=== PATIENT | male | born 1965 | race Caucasian/White ===

== ENCOUNTER 2019-06-19 20:05 | Inpatient (IN) | payer OTHER, MEDICAID ==
[~2019-06-19] VITALS: Ht 172.7 cm; Wt 80.1 kg
[2019-06-19 20:15] VITALS: BP_SYST 147
[2019-06-19] MEDS ORDERED: FAMOTIDINE PF 20 MG/2 ML VIAL IVP ONE (20:30)
[2019-06-19] MEDS ORDERED: MORPHINE 2 MG/ML INJ. SYRINGE IVP ONE (20:30)
[2019-06-19] MEDS ORDERED: ONDANSETRON HCL 4 MG/2 ML VIAL IVP ONE (20:30)
[2019-06-19 21:02] LABS: BASOPHILS # (AUTO) 0.1 K/uL (0.0-0.2); BASOPHILS % (AUTO) 0.7 % (0.0-2.0); EOSINOPHILS # (AUTO) 0.1 K/uL (0.0-0.4); EOSINOPHILS % (AUTO) 0.6 % (0.0-4.0); HEMATOCRIT 44.5 % (36-54); HEMOGLOBIN 13.8 g/dL (14.0-18.0); LYMPHOCYTES # (AUTO) 1.2 K/uL (1.0-5.5); LYMPHOCYTES % (AUTO) 10.3 % (20.5-51.5); MEAN CORPUSCULAR HEMOGLOBIN 27 pg (27-31); MEAN CORPUSCULAR HGB CONC 31 % (32-36); MEAN CORPUSCULAR VOLUME 87 fL (79.0-98.0); MONOCYTES # (AUTO) 1.7 K/uL (0.0-1.0); MONOCYTES % (AUTO) 14.9 % (1.7-9.3); NEUTROPHILS # (AUTO) 8.6 K/uL (1.8-7.7); NEUTROPHILS % (AUTO) 73.5 % (40.0-70.0); PLATELET COUNT (AUTO) 150 K/uL (130-430); RED BLOOD CELL COUNT(AUTO) 5.14 MIL/uL (4.2-6.2); RED CELL DISTRIBUTION WIDTH 22.6 % (9.0-15.0); WHITE BLOOD COUNT (AUTO) 11.8 K/uL (4.8-10.8)
[2019-06-19 21:13] LABS: CALCIUM 8.2 mg/dL (8.4-11.0)
[2019-06-19 21:18] LABS: ALBUMIN 2.5 g/dL (3.4-4.8); INR 1.4 (0.80-1.20); PROTHROMBIN TIME 13.7 SECS (9.5-12.5); TOTAL BILIRUBIN 0.7 mg/dL (0.0-1.0)
[2019-06-19 21:35] LABS: POTASSIUM 7.1 mmol/L (3.5-5.1)
[2019-06-19 21:43] LABS: CREATININE 11.73 mg/dL (0.55-1.30)
[2019-06-19] MEDS ORDERED: CALCIUM GLUCONATE 1 GM/10 ML VIAL IVP ONE (21:45)
[2019-06-19] MEDS ORDERED: INSULIN REGULAR, HUMAN 100 UNITS/ML, 10 ML VIAL IVP ONE (21:45)
[2019-06-19] MEDS ORDERED: DEXTROSE 50% JECT 50 ML DISP.SYRIN IVP ONE (21:45)
[2019-06-19] MEDS ORDERED: DILTIAZEM HCL 25 MG/5 ML VIAL IVP ONE (21:45)
[2019-06-19] MEDS ORDERED: SODIUM BICARBONATE 8.4% JECT 50 MEQ/50 ML SYRINGE IVP ONE (21:45)
[2019-06-19] MEDS ORDERED: SODIUM POLYSTYRENE SULFONATE 15 GM/60 ML UDBTL PO ONE (21:45)
[2019-06-19] MEDS ORDERED: NS 200 ML IV ONE (23:45)
[2019-06-20] VITALS (23 sets, daily range): BP systolic 112–168
[2019-06-20] MEDS ORDERED: ASPIRIN 81 MG TAB.CHEW PO ONE (00:15)
[2019-06-20] MEDS ORDERED: ACETAMINOPHEN 325 MG TABLET PO PRN (01:15)
[2019-06-20] MEDS ORDERED: DEXTROSE 50% JECT 50 ML DISP.SYRIN IVP PRN (01:15)
[2019-06-20] MEDS ORDERED: GLUCOSE 15 GM GEL (in 37.5 GM TUBE) PO PRN (01:15)
[2019-06-20] MEDS ORDERED: hydrALAZINE HCL 20 MG/ML VIAL IVP PRN (01:15)
[2019-06-20] MEDS ORDERED: D5W 1,000 ML IV PRN (01:15)
[2019-06-20] MEDS ORDERED: CAT.1 PO (01:20)
[2019-06-20] MEDS ORDERED: HYDR-3698 PO (01:21)
[2019-06-20] MEDS ORDERED: FURO-149 PO (01:22)
[2019-06-20] MEDS ORDERED: SODIUM BICARBONATE 8.4% VIAL 50 MEQ/50 ML VIAL INJ ONE (01:30)
[2019-06-20] MEDS ORDERED: NITROGLYCERIN 0.4 MG TAB.SUBL SL PRN (02:00)
[2019-06-20] MEDS ORDERED: SODIUM BICARBONATE 8.4% VIAL 50 MEQ/50 ML VIAL INJ SCH (02:00)
[2019-06-20] MEDS ORDERED: METOPROLOL TARTRATE 25 MG TABLET PO SCH ×3 (02:15→09:00)
[2019-06-20] MEDS ORDERED: METOPROLOL TARTRATE 50 MG TABLET PO SCH (02:30)
[2019-06-20] MEDS ORDERED: SODIUM BICARBONATE 8.4% JECT 50 MEQ/50 ML SYRINGE ONE (02:36)
[2019-06-20 05:51] LABS: BASOPHILS # (AUTO) 0.1 K/uL (0.0-0.2); BASOPHILS % (AUTO) 0.9 % (0.0-2.0); EOSINOPHILS # (AUTO) 0.1 K/uL (0.0-0.4); EOSINOPHILS % (AUTO) 0.9 % (0.0-4.0); HEMATOCRIT 42.9 % (36-54); HEMOGLOBIN 13.5 g/dL (14.0-18.0); LYMPHOCYTES # (AUTO) 0.7 K/uL (1.0-5.5); MEAN CORPUSCULAR HEMOGLOBIN 27 pg (27-31); MEAN CORPUSCULAR HGB CONC 32 % (32-36); MEAN CORPUSCULAR VOLUME 85 fL (79.0-98.0); MONOCYTES # (AUTO) 1.5 K/uL (0.0-1.0); MONOCYTES % (AUTO) 13.7 % (1.7-9.3); NEUTROPHILS # (AUTO) 8.3 K/uL (1.8-7.7); NEUTROPHILS % (AUTO) 77.5 % (40.0-70.0); PLATELET COUNT (AUTO) 136 K/uL (130-430); RED BLOOD CELL COUNT(AUTO) 5.06 MIL/uL (4.2-6.2); RED CELL DISTRIBUTION WIDTH 22.3 % (9.0-15.0); WHITE BLOOD COUNT (AUTO) 10.7 K/uL (4.8-10.8)
[2019-06-20 06:03] LABS: CALCIUM 7.8 mg/dL (8.4-11.0); POTASSIUM 4.1 mmol/L (3.5-5.1)
[2019-06-20 06:11] LABS: ALBUMIN 2.3 g/dL (3.4-4.8)
[2019-06-20 06:14] LABS: CREATININE 8.07 mg/dL (0.55-1.30)
[2019-06-20] MEDS: INSULIN REGULAR, HUMAN 100 UNITS/ML, 10 ML VIAL (humuLIN R) SUBCUT PRN ×3 (06:23→20:08)
[2019-06-20] MEDS: ASPIRIN 81 MG TAB.CHEW PO SCH (09:51)
[2019-06-20] MEDS: FUROSEMIDE 20 MG TABLET PO SCH ×2 (09:51→20:01)
[2019-06-20] MEDS: MORPHINE 2 MG/ML INJ. SYRINGE IVP PRN ×2 (10:59→21:54)
[2019-06-20] MEDS ORDERED: CARVEDILOL 25 MG TABLET (COREG) PO ONE (11:30)
[2019-06-20] MEDS: CARVEDILOL 25 MG TABLET (COREG) PO SCH (20:02)
[2019-06-20] MEDS: hydrALAZINE HCL 25 MG TABLET PO SCH (20:02)
[2019-06-21] VITALS (18 sets, daily range): BP systolic 96–147
[2019-06-21 05:31] LABS: BASOPHILS # (AUTO) 0.1 K/uL (0.0-0.2); BASOPHILS % (AUTO) 0.7 % (0.0-2.0); EOSINOPHILS # (AUTO) 0.2 K/uL (0.0-0.4); HEMATOCRIT 38.5 % (36-54); HEMOGLOBIN 12.1 g/dL (14.0-18.0); LYMPHOCYTES # (AUTO) 0.8 K/uL (1.0-5.5); LYMPHOCYTES % (AUTO) 9.7 % (20.5-51.5); MEAN CORPUSCULAR HEMOGLOBIN 27 pg (27-31); MEAN CORPUSCULAR HGB CONC 32 % (32-36); MEAN CORPUSCULAR VOLUME 84 fL (79.0-98.0); MONOCYTES # (AUTO) 1.1 K/uL (0.0-1.0); MONOCYTES % (AUTO) 13.7 % (1.7-9.3); NEUTROPHILS # (AUTO) 5.9 K/uL (1.8-7.7); NEUTROPHILS % (AUTO) 73.9 % (40.0-70.0); PLATELET COUNT (AUTO) 114 K/uL (130-430); RED BLOOD CELL COUNT(AUTO) 4.57 MIL/uL (4.2-6.2); RED CELL DISTRIBUTION WIDTH 21.9 % (9.0-15.0)
[2019-06-21 06:14] LABS: CALCIUM 7.2 mg/dL (8.4-11.0); POTASSIUM 5.4 mmol/L (3.5-5.1)
[2019-06-21 06:15] LABS: CREATININE 9.64 mg/dL (0.55-1.30); TOTAL BILIRUBIN 0.6 mg/dL (0.0-1.0)
[2019-06-21 06:16] LABS: ALBUMIN 1.9 g/dL (3.4-4.8); THYROID STIMULATING HORMONE 8.56 uIu/mL (0.36-3.74)
[2019-06-21] MEDS: INSULIN REGULAR, HUMAN 100 UNITS/ML, 10 ML VIAL (humuLIN R) SUBCUT PRN ×3 (06:26→17:53)
[2019-06-21] MEDS: MORPHINE 2 MG/ML INJ. SYRINGE IVP PRN ×2 (06:26→14:10)
[2019-06-21] MEDS ORDERED: HEPARIN SODIUM,PORCINE 5000 UNITS/ML VIAL IV ONE (08:45)
[2019-06-21] MEDS: hydrALAZINE HCL 25 MG TABLET PO SCH ×2 (09:00→20:05)
[2019-06-21] MEDS: ASPIRIN 81 MG TAB.CHEW PO SCH ×2 (09:00)
[2019-06-21] MEDS ORDERED: HEPARIN SODIUM,PORCINE 5000 UNITS/ML VIAL MC ONE (09:00)
[2019-06-21] MEDS: CARVEDILOL 25 MG TABLET (COREG) PO SCH ×3 (09:00→20:05)
[2019-06-21] MEDS: FUROSEMIDE 20 MG TABLET PO SCH ×3 (10:45→20:06)
[2019-06-21] MEDS: MUPIROCIN 2% TOPICAL OINTMENT 22 GM TP SCH (20:17)
[2019-06-22] VITALS: BP_SYST 126
[2019-06-22] MEDS: MORPHINE 2 MG/ML INJ. SYRINGE IVP PRN ×6 (00:35→23:38)
[2019-06-22] MEDS: INSULIN REGULAR, HUMAN 100 UNITS/ML, 10 ML VIAL (humuLIN R) SUBCUT PRN ×4 (06:15→20:13)
[2019-06-22 08:00] VITALS: BP_SYST 126
[2019-06-22] MEDS: ASPIRIN 81 MG TAB.CHEW PO SCH (08:51)
[2019-06-22] MEDS: FUROSEMIDE 20 MG TABLET PO SCH ×2 (08:51→20:09)
[2019-06-22] MEDS: MUPIROCIN 2% TOPICAL OINTMENT 22 GM TP SCH ×2 (10:42→20:08)
[2019-06-22] MEDS: CARVEDILOL 25 MG TABLET (COREG) PO SCH ×2 (10:43→20:10)
[2019-06-22] MEDS: hydrALAZINE HCL 25 MG TABLET PO SCH ×2 (10:44→20:10)
[2019-06-22 11:21] LABS: CALCIUM 7.2 mg/dL (8.4-11.0); POTASSIUM 5.6 mmol/L (3.5-5.1)
[2019-06-22 11:26] LABS: ALBUMIN 1.9 g/dL (3.4-4.8); TOTAL BILIRUBIN 0.6 mg/dL (0.0-1.0)
[2019-06-22 11:31] LABS: CREATININE 8.01 mg/dL (0.55-1.30)
[2019-06-22 12:00] VITALS: BP_SYST 116
[2019-06-22 16:00] VITALS: BP_SYST 116
[2019-06-22 20:00] VITALS: BP_SYST 125
[2019-06-23] MEDS: MORPHINE 2 MG/ML INJ. SYRINGE IVP PRN ×2 (03:37→13:56)
[2019-06-23 04:00] VITALS: BP_SYST 119
[2019-06-23 04:02] VITALS: BP_SYST 106
[2019-06-23] MEDS: INSULIN REGULAR, HUMAN 100 UNITS/ML, 10 ML VIAL (humuLIN R) SUBCUT PRN ×2 (06:03→13:08)
[2019-06-23] MEDS: hydrALAZINE HCL 25 MG TABLET PO SCH (13:17)
[2019-06-23] MEDS: ASPIRIN 81 MG TAB.CHEW PO SCH (13:17)
[2019-06-23] MEDS: CARVEDILOL 25 MG TABLET (COREG) PO SCH (13:18)
[2019-06-23] MEDS: FUROSEMIDE 20 MG TABLET PO SCH (13:19)
[2019-06-23] MEDS ORDERED: CARV25TA55 PO (13:54)
[2019-06-23] MEDS ORDERED: HYDR-4038 PO (13:54)
[2019-06-23 15:55] VITALS: BP_SYST 133
== END 2019-06-23 17:25 | disposition home or self-care (01) | DRG 682 ==
LOC: SED 20:05 → SIC 06-20 01:15 → STU 06-21 17:13
PROVIDERS: ADMIT Family Medicine; ATTEND Family Medicine
PROC: 5A1D70Z Performance of Urinary Filtration, Intermittent, Less than 6 Hours Per Day (ICD-10-PCS; principal; 2019-06-20)
PROC: 5A1D70Z Performance of Urinary Filtration, Intermittent, Less than 6 Hours Per Day (ICD-10-PCS; 2019-06-21)
PROC: 5A1D70Z Performance of Urinary Filtration, Intermittent, Less than 6 Hours Per Day (ICD-10-PCS; 2019-06-23)
DX: N17.9 Acute kidney failure, unspecified (principal); I50.23 Acute on chronic systolic (congestive) heart failure; I13.2 Hypertensive heart and chronic kidney disease with heart failure and with stage 5 chronic kidney disease, or end stage renal disease; E87.1 Hypo-osmolality and hyponatremia; E87.2 Acidosis; I42.9 Cardiomyopathy, unspecified; N18.6 End stage renal disease; B19.20 Unspecified viral hepatitis C without hepatic coma; D64.9 Anemia, unspecified; E11.22 Type 2 diabetes mellitus with diabetic chronic kidney disease; E87.5 Hyperkalemia; F15.10 Other stimulant abuse, uncomplicated; F17.210 Nicotine dependence, cigarettes, uncomplicated; E11.51 Type 2 diabetes mellitus with diabetic peripheral angiopathy without gangrene; E11.65 Type 2 diabetes mellitus with hyperglycemia; E11.42 Type 2 diabetes mellitus with diabetic polyneuropathy; I48.0 Paroxysmal atrial fibrillation; J44.9 Chronic obstructive pulmonary disease, unspecified; K70.31 Alcoholic cirrhosis of liver with ascites; Z79.4 Long term (current) use of insulin; Z99.2 Dependence on renal dialysis; Z86.73 Personal history of transient ischemic attack (TIA), and cerebral infarction without residual deficits; Z79.899 Other long term (current) drug therapy; Z87.19 Personal history of other diseases of the digestive system
CPT/HCPCS: 36415; 71045; 74018; 80053; 80061; 82105; 82962; 83605; 83880; 84443-TC; 84484; 85025; 85379; 85610-TC; 85730-TC; 87040-TC; 87081; 90935; 90937; 93005; 93306; 96361; 96365; 96375; 97116-GP; 97530-GP; 99291; G0378; J0610; J1644; J1956; J2270; J2405; J3490; J7030

== ENCOUNTER 2019-06-29 23:25 | Inpatient (IN) | payer OTHER, MEDICAID ==
[~2019-06-29] VITALS: Ht 170.2 cm; Wt 71.2 kg
[~2019-06-29 23:25] MED LIST: CARV25TA55 PO; CAT.1 PO; FURO-149 PO; HYDR-3698 PO; HYDR-4038 PO
[2019-06-29 23:39] VITALS: BP_SYST 160
--- NOTE | 2019-06-29 23:39 | NUR ---
Placed in room 02 . Placed on monitoring coordinator, blood pressure machine and pulse oximeter. To gown for exam. Side rails up. Report given to Юлия MONTEZ.
--- NOTE | 2019-06-29 23:40 | NUR ---
Pt came to the ED for SOB and ABd pain for 2 hours. Pt was recently discharged from this hospital. Denies n/v/d or fever. Reports he has sharp epigastric pain. Reports SOB has been going on for a few days. Pt reports that he has dialysis , , tuesday. NO other complaints/injuries noted. Will cont. to monitor.
--- NOTE | 2019-06-29 23:45 | NUR ---
Dr. Lariso at bedside.
[2019-06-30] VITALS (17 sets, daily range): BP systolic 102–186
--- NOTE | 2019-06-30 | NUR ---
Dr. Ibanez at bedside.
[2019-06-30] MEDS ORDERED: ASPIRIN 81 MG TAB.CHEW PO ONE (00:15)
[2019-06-30] MEDS ORDERED: cloNIDine HCL 0.2 MG TABLET PO PRN (00:15)
[2019-06-30] MEDS ORDERED: cloNIDine HCL 0.1 MG TABLET PO PRN (00:15)
--- NOTE | 2019-06-30 00:15 | NUR ---
Patient will be admitted to care of Dr. Ibanez. Admitted to ICU unit. Will go to room 6. Belongings list completed. Summary report printed. Report will be given at bedside.
--- NOTE | 2019-06-30 00:20 | NUR ---
PT states that last time he did meth was 6 months ago. Pt reports sores on arms are due to "elevated phosporus from dialysis."
[2019-06-30] MEDS ORDERED: DILTIAZEM HCL 25 MG/5 ML VIAL IVP ONE (00:30)
[2019-06-30 00:33] LABS: HEMATOCRIT 45.5 % (36-54); HEMOGLOBIN 14.1 g/dL (14.0-18.0); MEAN CORPUSCULAR HEMOGLOBIN 26 pg (27-31); MEAN CORPUSCULAR HGB CONC 31 % (32-36); MEAN CORPUSCULAR VOLUME 85 fL (79.0-98.0); PLATELET COUNT (AUTO) 117 K/uL (130-430); RED BLOOD CELL COUNT(AUTO) 5.38 MIL/uL (4.2-6.2); RED CELL DISTRIBUTION WIDTH 21.9 % (9.0-15.0); WHITE BLOOD COUNT (AUTO) 10.3 K/uL (4.8-10.8)
--- NOTE | 2019-06-30 00:34 | NUR ---
Pt medicated with cardiazem IVP per MD order. HR is in 140's. Pt cont. cardiac and O2 monitor. Will cont. to monitor.
--- NOTE | 2019-06-30 00:35 | NUR ---
Asked pt for urine, pt states, "I cannot urinate." er MADE AWARE
[2019-06-30] MEDS ORDERED: DILTIAZEM HCL 25 MG/5 ML VIAL ONE (00:41)
[2019-06-30 00:45] LABS: CALCIUM 8.2 mg/dL (8.4-11.0); POTASSIUM 5.5 mmol/L (3.5-5.1)
[2019-06-30] MEDS ORDERED: ENOXAPARIN SODIUM 30 MG/0.3 ML SYRINGE SUBCUT ONE (00:45)
[2019-06-30] MEDS ORDERED: FUROSEMIDE 40 MG/4 ML VIAL IVP ONE (00:45)
[2019-06-30] MEDS ORDERED: DEXTROSE 50% JECT 50 ML DISP.SYRIN IVP PRN (00:45)
[2019-06-30 00:47] LABS: INR 1.2 (0.80-1.20)
[2019-06-30 00:51] LABS: ALBUMIN 2.7 g/dL (3.4-4.8); TOTAL BILIRUBIN 0.6 mg/dL (0.0-1.0)
--- NOTE | 2019-06-30 00:53 | NUR ---
Dr. Larios would like CTA done before pt goes to ICU. ICU charge nurse notified.
[2019-06-30] MEDS ORDERED: IOHEXOL 350 mgI/mL, 150 ML INFUS..BTL IV ONE (00:54)
[2019-06-30 00:57] LABS: CREATININE 9.67 mg/dL (0.55-1.30)
--- NOTE | 2019-06-30 00:59 | NUR ---
Asked Dr. Larios if pt still needs CTA with elevated BUN and creatinine levels. He said, "He can dialyze tomorrow, i'll make sure of it."
[2019-06-30 01:00] LABS: ATYPICAL LYMPHOCYTES % 0 % (0-0); BAND % (MANUAL) 1 % (0-6); BASOPHILS % (MANUAL) 1 % (0-2); EOSINOPHILS % (MANUAL) 2 % (0-7); LYMPHOCYTES % (MANUAL) 7 % (20-46); METAMYELOCYTES % 0 % (0-0); MONOCYTES % (MANUAL) 8 % (0-11); MYELOCYTES % 0 % (0-0)
[2019-06-30] MEDS ORDERED: cloNIDine HCL 0.1 MG TABLET PO SCH (01:00)
[2019-06-30] MEDS ORDERED: DILTIAZEM HCL 125 MG in D5W 100 ML IV SCH (01:00)
[2019-06-30] MEDS ORDERED: FUROSEMIDE 40 MG/4 ML VIAL IVP SCH (01:10)
[2019-06-30] MEDS ORDERED: NITROGLYCERIN 1 INCH (GM) OINT. TP SCH (01:15)
[2019-06-30] MEDS ORDERED: ENOXAPARIN SODIUM 60 MG/0.6 ML SYRINGE SUBCUT ONE (01:15)
--- NOTE | 2019-06-30 01:17 | NUR ---
Administered lasix 80mg, however, pt only able to tolerate 60mg. pt had one episode of emesis. Er MD made aware.
--- NOTE | 2019-06-30 01:26 | NUR ---
Called Radiology and spoke to castillo. He reports that he cannot do IV contrast with creatinine of 9.67. ER made aware.
[2019-06-30] MEDS ORDERED: ONDANSETRON HCL 4 MG/2 ML VIAL IVP ONE (01:30)
--- NOTE | 2019-06-30 01:30 | NUR ---
Note abimbola in ED - 06/30/19 at 0236 by [email or web address] Pt had one episode of emesis. ALOK MELENDEZ made aware.
[2019-06-30] MEDS: PIPERACILLIN/TAZO 2.25G/DEX-IS 50 ML IV SCH ×5 (01:48→23:04)
[2019-06-30] MEDS ORDERED: PIPERACILLIN/TAZOBACTAM 2.25 GM VIAL IV ONE ×2 (01:56→03:11)
--- NOTE | 2019-06-30 02:01 | NUR ---
Dr. Larios spoke to Dr. Ibanez, cancelling CTA. Pt will have VQ scan.
--- NOTE | 2019-06-30 02:15 | NUR ---
Transfer to Tele via ACLS protocol. Licensed nurse present. IV present no signs or symptoms of infiltration. Addendum: 06/30/19 at 0611 by [email or web address] Transfer to ICU via ACLS protocol. Licensed nurse present. IV present no signs or symptoms of infiltration.
--- NOTE | 2019-06-30 02:15 | NUR ---
ADMISSION NOTE Pt admitted from ER and placed in ICU bed 6. SBAR report received at bedside. Pt able to ambulate from ER gurney onto ICU bed. No signs of acute distress or discomfort noted. Pt connected to in room mounter clarinets, sinus tach seen on the monitor. Pt on RA tolerating well with O2 sats @ 96% and even and unlabored breathing. Pt has a RFA 18g, c/d/i. AV shunt noted to pt's left arm. Pt doesn't verbalize any needs at this time. Bed is locked and in lowest position, call light within reach, will cont to monitor.
[2019-06-30] MEDS ORDERED: DILTIAZEM HCL 125 MG/25 ML VIAL IV ONE (02:41)
--- NOTE | 2019-06-30 04:05 | NUR ---
LEONILA TAYLOR AND CHELSEY'S EXCHANGE WERE NOTIFIED OF CONSULT.TALKED TO NIECY
[2019-06-30] MEDS: INSULIN REGULAR, HUMAN 100 UNITS/ML, 10 ML VIAL (humuLIN R) SUBCUT PRN ×4 (06:28→21:38)
--- NOTE | 2019-06-30 07:20 | NUR ---
ENDORSEMENT Report given to oncoming nurse using SBAR format and pt care was endorsed. No signs of acute distress or discomfort noted.
--- NOTE | 2019-06-30 07:40 | NUR ---
AM ASSESSMENT Pt received from night RN using SBAR. Pt resting in bed with eyes closed, pt is easily arousable to verbal stimuli. Bed in lowest position with call light within reach. No signs of acute distress or injury.
[2019-06-30] MEDS: hydrALAZINE HCL 25 MG TABLET PO SCH ×3 (09:00→21:37)
[2019-06-30] MEDS: CARVEDILOL 25 MG TABLET (COREG) PO SCH ×3 (09:00→21:36)
[2019-06-30] MEDS ORDERED: FUROSEMIDE 40 MG TABLET PO SCH (09:00)
[2019-06-30] MEDS ORDERED: DILTIAZEM HCL 120 MG CAP.SR.24H PO ONE (09:30)
--- NOTE | 2019-06-30 12:00 | NUR ---
Hemodialysis Pt received hemodialysis, pt tolerated well with 3L out. Vital signs remained stable during dialysis. Will continue to monitor.
--- NOTE | 2019-06-30 14:00 | NUR ---
[facility] [employer] sound tech at [facility] with pt.
--- NOTE | 2019-06-30 14:28 | NUR ---
[employer] electronic bench technician concluded exam, pt tolerated well.
--- NOTE | 2019-06-30 14:50 | NUR ---
Report Telephone report given to Frank MONTEZ.
--- NOTE | 2019-06-30 14:53 | NUR ---
Transferred Pt transferred to TELE room 116A via wheelchair. All belongings confirmed and taken with pt. No signs of acute distress or injury noted.
[2019-06-30] MEDS ORDERED: VANCOMYCIN HCL 1,000 MG in NS 250 ML IV SCH (15:00)
--- NOTE | 2019-06-30 15:00 | NUR ---
RECEIVED PATIENT FROM ICU: Received patient from [employer] REPORTER via wheelchair, patient placed in [facility] bed 116-A and connected to continuous remote telemetry monitoring. Received SBAR report and plan of care from [employer] REPORTER. Patient AAOx4, verbal and ambulatory. Patient denies SOB, denies chest pain at this time, breathing is even and unlabored, no signs of distress noted.
--- NOTE | 2019-06-30 17:00 | NUR ---
RN ROUNDS: Patient remains AOx4, verbal and ambulatory. Patient is sleeping at this time. IV antibiotics administered as ordered. Patient denies chest pain, denies SOB, no signs of distress noted.
--- NOTE | 2019-06-30 19:55 | NUR ---
INITIAL NOTES AT INITIAL ASSESSMENT, PATIENT IS RESTING IN BED, STABLE, NO SIGNS OF RESPIRATORY DISTRESS. PLAN OF CARE FOR THE EVENING IS COMMUNICATED WITH THE PATIENT. PATIENT VERBALIZES NO PAIN AT THIS TIME. PATIENT SUCCESSFULLY DEMONSTRATES CORRECT USAGE OF CALL LIGHT. BED IS LOCKED, ALARMED, AND AT THE LOWEST LEVEL. FALL, SAFETY, AND RESPIRATORY PRECAUTIONS WILL BE TAKEN THROUGHOUT THE SHIFT.
[2019-06-30] MEDS ORDERED: ENOXAPARIN SODIUM 30 MG/0.3 ML SYRINGE SUBCUT SCH (21:00)
--- NOTE | 2019-06-30 21:55 | NUR ---
NOTE BLOOD SUGAR CHECK AT THIS TIME REQUIRES INSULIN COVERAGE PER SSI ORDERED BY MD. SCHEDULED NIGHT TIME MEDICATIONS ARE ALSO GIVEN AT THIS TIME. PATIENT IS STABLE, NO SIGNS OF RESPIRATORY DISTRESS. CALL LIGHT IS WITHIN REACH. BED IS LOCKED, ALARMED, AND AT THE LOWEST LEVEL.
--- NOTE | 2019-06-30 22:30 | NUR ---
NOTE PATIENT IS COMPLAINING OF INSOMNIA AT THIS TIME, MD WILL BE PAGED TO REQUEST FOR ORDERS. PATIENT IS REPOSITIONED FOR COMFORT. CALL LIGHT IS WITHIN REACH. BED IS LOCKED, ALARMED, AND AT THE LOWEST LEVEL.
--- NOTE | 2019-06-30 22:48 | NUR ---
PAGED PAGED DR. TOM FOR ORDERS, SPOKE WITH GUTIERREZ
[2019-06-30] MEDS ORDERED: TEMAZEPAM 7.5 MG CAPSULE PO PRN (23:00)
--- NOTE | 2019-06-30 23:00 | NUR ---
COMMUNICATION WITH DR. VAISHALI TOM HAS PAGED BACK AT THIS TIME, PATIENT'S REQUEST FOR PRN MEDICATION FOR INSOMNIA IS GRANTED. ORDER WAS READ BACK, VERIFIED, AND ENTERED. WILL BE GIVEN TO PATIENT ONCE APPROVED BY PHARMACY.
--- NOTE | 2019-06-30 23:55 | NUR ---
NOTE PATIENT IS SLEEPING, STABLE, NO SIGNS OF RESPIRATORY DISTRESS. CALL LIGHT IS WITHIN REACH. BED IS LOCKED, ALARMED, AND AT THE LOWEST LEVEL.
[2019-07-01 00:49] VITALS: BP_SYST 118
--- NOTE | 2019-07-01 01:55 | NUR ---
NOTE PATIENT IS SLEEPING, STABLE, NO SIGNS OF RESPIRATORY DISTRESS. CALL LIGHT IS WITHIN REACH. BED IS LOCKED, ALARMED, AND AT THE LOWEST LEVEL.
--- NOTE | 2019-07-01 03:55 | NUR ---
NOTE PATIENT IS SLEEPING, STABLE, NO SIGNS OF RESPIRATORY DISTRESS. CALL LIGHT IS WITHIN REACH. BED IS LOCKED, ALARMED, AND AT THE LOWEST LEVEL.
--- NOTE | 2019-07-01 05:35 | NUR ---
NOTE PATIENT IS SLEEPING, STABLE, NO SIGNS OF RESPIRATORY DISTRESS. CALL LIGHT IS WITHIN REACH. BED IS LOCKED, ALARMED, AND AT THE LOWEST LEVEL.
--- NOTE | 2019-07-01 06:07 | NUR ---
CLOSING NOTE PATIENT SLEPT WELL THROUGHOUT THE SHIFT. AT THIS TIME, PATIENT IS STABLE, NO SIGNS OF RESPIRATORY DISTRESS. CALL LIGHT IS WITHIN REACH. BED IS LOCKED, ALARMED, AND AT THE LOWEST LEVEL. FALL, AND SAFETY PRECAUTIONS HAVE BEEN TAKEN THROUGHOUT THE SHIFT. WILL CONTINUE TO MONITOR UNTIL SHIFT REPORT IS GIVEN AT BEDSIDE TO AM NURSE.
[2019-07-01] MEDS: PIPERACILLIN/TAZO 2.25G/DEX-IS 50 ML IV SCH ×2 (06:39→11:22)
[2019-07-01] MEDS: INSULIN REGULAR, HUMAN 100 UNITS/ML, 10 ML VIAL (humuLIN R) SUBCUT PRN (06:46)
[2019-07-01 07:36] LABS: BASOPHILS # (AUTO) 0.1 K/uL (0.0-0.2); BASOPHILS % (AUTO) 1.1 % (0.0-2.0); EOSINOPHILS # (AUTO) 0.2 K/uL (0.0-0.4); EOSINOPHILS % (AUTO) 2.2 % (0.0-4.0); HEMATOCRIT 40.1 % (36-54); HEMOGLOBIN 12.4 g/dL (14.0-18.0); LYMPHOCYTES # (AUTO) 0.6 K/uL (1.0-5.5); LYMPHOCYTES % (AUTO) 7.3 % (20.5-51.5); MEAN CORPUSCULAR HEMOGLOBIN 26 pg (27-31); MEAN CORPUSCULAR HGB CONC 31 % (32-36); MEAN CORPUSCULAR VOLUME 84 fL (79.0-98.0); NEUTROPHILS # (AUTO) 6.4 K/uL (1.8-7.7); PLATELET COUNT (AUTO) 96 K/uL (130-430); RED BLOOD CELL COUNT(AUTO) 4.75 MIL/uL (4.2-6.2); WHITE BLOOD COUNT (AUTO) 8.3 K/uL (4.8-10.8)
[2019-07-01 07:39] LABS: ALBUMIN 1.8 g/dL (3.4-4.8); CALCIUM 7.1 mg/dL (8.4-11.0); FREE T4 (FREE THYROXINE) 0.8 ng/dl (0.8-1.5); PHOSPHORUS 6.4 mg/dL (2.7-4.5); THYROID STIMULATING HORMONE 6.64 uIu/mL (0.36-3.74); TOTAL BILIRUBIN 0.6 mg/dL (0.0-1.0)
--- NOTE | 2019-07-01 07:40 | NUR ---
Patient awake/alert oriented x3 denies any abdominal pain kept on RA 94% , abdominal incision dry/clean , plan of care, skin care , incentive spirometer used, blood pressure medication indication/side effect verbalized understanding. Addendum: 07/01/19 at 0750 by Flaca Nicole RN This note is not intended for this patient.
[2019-07-01 07:52] LABS: CREATININE 7.58 mg/dL (0.55-1.30); POTASSIUM 5.8 mmol/L (3.5-5.1)
[2019-07-01 07:53] LABS: NEUTROPHILS % (AUTO) 77.4 % (40.0-70.0)
--- NOTE | 2019-07-01 07:55 | NUR ---
HABILITATION ASSISTANT TELEPHONE STATION REPAIRER DR Ariel CRUZ WAS CALLED RE: HIGH K LEVEL OF 5.8. SPOKE TO AGUILAR.
--- NOTE | 2019-07-01 08:00 | NUR ---
Critical value Patient awake/alert , informed regarding lab values,for repeat HD today and agreed, telemetry atrial flutter in controlled rate denies any pain no sign of acute respiratory distress , instructed not to eat food that are high in potassium verbalized understanding,will follow up.
[2019-07-01] MEDS: CARVEDILOL 25 MG TABLET (COREG) PO SCH (08:36)
[2019-07-01 08:38] VITALS: BP_SYST 124
[2019-07-01] MEDS ORDERED: DILTIAZEM HCL 120 MG CAP.SR.24H PO SCH (09:00)
[2019-07-01] MEDS: hydrALAZINE HCL 25 MG TABLET PO SCH (09:00)
--- NOTE | 2019-07-01 09:30 | NUR ---
Started hemodialysis vital sign monitored by HD nurse.
[2019-07-01 11:20] VITALS: BP_SYST 137
[2019-07-01 12:30] VITALS: BP_SYST 128
--- NOTE | 2019-07-01 12:30 | NUR ---
Hemodialysis completed with 3 liters output ,vitals sign stable , lunch served.
[2019-07-01 15:20] VITALS: BP_SYST 118
--- NOTE | 2019-07-01 15:30 | NUR ---
Seen and examined by Dr. Ibanez patient wants to go home , vitals sign within normal limits, no shortness of breath.
[2019-07-01 15:42] VITALS: BP_SYST 118
--- NOTE | 2019-07-01 16:00 | NUR ---
D/C Patient Patient given medication reconciliation form and D/C instructions. Exit Care provided. Patient verbalized understanding. MD discussed with patient the results and treatment provided. Ambulatory with steady gait for discharge to home. Patient in stable condition, ID band removed. IV catheter removed, intact and dressing applied, no active bleeding. Patient educated on medication, follow up with PCP,CHEMICAL PLANT OPERATOR, HEMODIALYSIS as scheduled. All belongings sent with patient.
--- NOTE | 2019-07-02 08:52 | NUR ---
FOLLOW UP APPOINTMENT PATIENT HAS NO PCP LISTED. CALLED PATIENT TO FIND OUT AND KEFT MESSAGE, CHANNING SARAH, PATIENT'S FRIEND AND ROOM MATE TO HAVE MR FARLEY TO CALL ME BACK
--- NOTE | 2019-07-02 09:06 | NUR ---
FOLLOW P APPOINTMENT SW [facility] F[facility]. PATIENT AGREED TO SEE DR TOM HIS PCP. FOLLOW UP WITH DR TOM TODAY 07/02/19 AT 2 PM
== END 2019-07-01 16:10 | disposition home or self-care (01) | DRG 291 ==
LOC: SED 23:25 → SIC 23:59 → STU 06-30 14:41
PROVIDERS: ADMIT Internal Medicine; ATTEND Internal Medicine
DX: I13.2 Hypertensive heart and chronic kidney disease with heart failure and with stage 5 chronic kidney disease, or end stage renal disease (principal); I50.43 Acute on chronic combined systolic (congestive) and diastolic (congestive) heart failure; N18.6 End stage renal disease; I48.92 Unspecified atrial flutter; K70.31 Alcoholic cirrhosis of liver with ascites; I42.0 Dilated cardiomyopathy; I48.0 Paroxysmal atrial fibrillation; E11.22 Type 2 diabetes mellitus with diabetic chronic kidney disease; E11.51 Type 2 diabetes mellitus with diabetic peripheral angiopathy without gangrene; I27.20 Pulmonary hypertension, unspecified; E87.5 Hyperkalemia; F15.90 Other stimulant use, unspecified, uncomplicated; Z99.2 Dependence on renal dialysis; Z91.14 Patient's other noncompliance with medication regimen; Z91.11 Patient's noncompliance with dietary regimen; Z86.73 Personal history of transient ischemic attack (TIA), and cerebral infarction without residual deficits; Z79.4 Long term (current) use of insulin; Z79.899 Other long term (current) drug therapy
CPT/HCPCS: 36415; 71045; 71250-TC; 80053; 82550-TC; 82962; 83605; 83880; 84100-TC; 84439; 84443-TC; 84484; 85007; 85025; 85027; 85379; 85610-TC; 85730-TC; 87040-TC; 87081; 90935; 90937; 93005; 93970; 96372; 96374; 96375; 99285; G0378; J1650; J1815; J1940; J2405; J2543; J3370; J3490; J7030; J7050; J7060; Q9967